=== PATIENT | female | born 1985 | race Caucasian/White ===

== ENCOUNTER 2017-01-18 23:41 | Emergency (ER) | payer OTHER, MEDICAID ==
[~2017-01-18] VITALS: Ht 152.4 cm; Wt 71.0 kg
[2017-01-18 23:42] VITALS: BP 166/93; PULSE 65; RESP 16; TEMP 98.2; O2SAT 100
[2017-01-19] MEDS ORDERED: CITA20TA4 PO (00:01)
[2017-01-19] MEDS ORDERED: KETOROLAC TROMETHAMINE 60 MG/2 ML (IM) VIAL IM ONE (00:30)
[2017-01-19] MEDS ORDERED: ORPHENADRINE INJ 60 MG/2 ML AMP IM ONE (00:30)
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
[2017-01-19] MEDS ORDERED: IBUP800T23 PO ×2 (01:20→01:22)
[2017-01-19] MEDS ORDERED: CYCL1TAB29 PO ×2 (01:20→01:22)
== END 2017-01-19 01:46 | disposition home or self-care (01) ==
LOC: NEPD 23:41
DX: S16.1XXA Strain of muscle, fascia and tendon at neck level, initial encounter (principal); M62.838 Other muscle spasm; V43.52XA Car driver injured in collision with other type car in traffic accident, initial encounter; Y92.411 Interstate highway as the place of occurrence of the external cause
CPT/HCPCS: 72040; 72072; 72100; 84703; 96372; 99284; J1885; J2360